=== PATIENT | male | born 1985 | race Caucasian/White ===

== ENCOUNTER 2016-07-01 14:55 | Emergency (ER) | payer BC ==
[~2016-07-01 14:55] MED LIST: COREG DPS3.125 MG PO; NORVASC5 MG PO; ZESTRIL DPS40 MG PO
[2016-08-04] MEDS ORDERED: DEMADEX DPS100 MG PO (18:22)
[2016-08-04] MEDS ORDERED: CARVEDILOL25 MG PO (18:22)
== END 2016-07-01 15:45 | disposition left against medical advice (07) ==
LOC: ER 14:55
DX: R05 Cough (principal); Z53.21 Procedure and treatment not carried out due to patient leaving prior to being seen by health care provider

== ENCOUNTER 2016-08-02 10:58 | Observation (INO) | payer BC ==
[2016-08-04] MEDS ORDERED: CARVEDILOL25 MG PO (18:22)
[2016-08-04] MEDS ORDERED: DEMADEX DPS100 MG PO (18:22)
== END 2016-08-03 17:30 | disposition home or self-care (01) ==
DX: I12.0 Hypertensive chronic kidney disease with stage 5 chronic kidney disease or end stage renal disease (principal); N18.6 End stage renal disease; D64.9 Anemia, unspecified; Z99.2 Dependence on renal dialysis; E87.5 Hyperkalemia; E83.39 Other disorders of phosphorus metabolism